=== PATIENT | female | born 1995 | race Caucasian/White ===

== ENCOUNTER 2016-07-24 09:14 | Emergency (ER) | payer OTHER ==
[~2016-07-24] VITALS: Ht 165.1 cm; Wt 110.0 kg
[2016-07-24 09:19] VITALS: Ht 165.1 cm; Wt 110.0 kg
[2016-07-24] MEDS ORDERED: ONDANSETRON (ODT) 4 MG TAB ODT STA (09:43)
[2016-07-24] MEDS ORDERED: ONDA4TAB14 PO (10:28)
[2016-07-24] MEDS ORDERED: ACET500C5 PO (10:28)
--- NOTE | 2016-07-24 10:35 | ERD ---
ER Documentation Chief Complaint Date/Time DATE: 07/24/16 TIME: 10:29 Chief Complaint DIARRHEA, VOMITING AND ABDOMINAL PAIN X 5 DAYS HPI 21-year-old female with no significant past medical history presents the ED complaining of having nausea, 3 episodes of nonbilious nonbloody vomiting, 3 episodes of nonbloody diarrhea and generalized abdominal pain that started 5 days ago. States that she was eating "bad chicken" at home, and reports that her sister also has similar symptoms after eating the same meal. States that she took 1 dose of her sister's antibiotic, unsure of the name, and did not feel any relief of her symptoms. Denies any fever, chills, chest pain, shortness of breath, melena, bloody stools, rectal pain, vaginal discharge, vaginal bleeding, dysuria, flank pain. States that her last menses was on July 11, 2016. States that she is a social drinker. Denies any smoking, drug use ROS All systems reviewed and are negative except as per history of present illness. Medications Home Meds Active Scripts Ondansetron (Ondansetron Odt) 4 Mg Tab.rapdis, 4 MG PO Q6H Y for NAUSEA AND/OR VOMITING, #10 TAB Prov:JAILENE LONGORIA PA-C 07/24/16 Acetaminophen* (Tylophen*) 500 Mg Capsule, 1 CAP PO Q6H Y for PAIN AND OR ELEVATED TEMP, #20 CAP Prov:JAILENE LONGORIA PA-C 07/24/16 PMhx/Soc History of Surgery: No Anesthesia Reaction: No Hx Neurological Disorder: No Hx Respiratory Disorders: No Hx Cardiac Disorders: No Hx Psychiatric Problems: No Hx Miscellaneous Medical Probl: No Hx Alcohol Use: Yes (socially) Hx Substance Use: No Hx Tobacco Use: No Smoking Status: Never smoker Physical Exam Vitals Vital Signs Date Time Temp Pulse Resp B/P Pulse Ox O2 Delivery O2 Flow Rate FiO2 07/24/16 09:19 97.6 81 17 137/88 98 Physical Exam Const: [id number], well-nourished. In no acute distress. Head: Atraumatic, normocephalic Eyes: Normal Conjunctiva without injection. No purulent discharge. ENT: Normal external ear, nose. Moist oropharynx without tonsillar exudates. Non -erythematous pharynx. Uvula midline. No drooling. No trismus. Neck: No cervical midline tenderness. Full range of motion. No meningismus. No cervical lymphadenopathy. No JVD. Resp: Clear to auscultation bilaterally. No wheezing, rhonchi, rales, or crackles. No accessory muscle use. No retractions. Cardio: Regular rate and rhythm. No murmurs, rubs or gallops. Abd: Soft, nontender to palpation, non distended. Normal bowel sounds. No palpable masses. No rebound tenderness. No guarding. Negative McBurney's point. Negative psoas sign. Negative obturator sign. Skin: No petechiae or rashes Back: No midline tenderness. No CVA tenderness. Ext: No cyanosis, or edema. Neur: Awake and alert. Normal gait. Normal coordination. Psych: Normal Mood and Affect Results 24 hrs Current Medications Medications (Trade) Dose Ordered Sig/Kenji Route PRN Reason Start Time Stop Time Status Last Admin Dose Admin Ondansetron HCl (Zofran Odt) 4 mg ONCE STAT ODT 07/24/16 09:43 07/24/16 09:45 DC 07/24/16 09:46 Procedures/MDM This is a 21-year-old female with no significant past medical history presents the ED complaining of generalized abdominal pain, nausea, vomiting, diarrhea after eating "bad chicken". Patient is afebrile and nontoxic-appearing. Patient has normal vital signs. Patient was given Zofran here in the ED with improvement of her symptoms. Patient tolerated oral intake and had a successful p.o. challenge. Patient verbalized that she feels better. Patient symptoms are likely due to viral etiology since her sister also has similar symptoms. A differential diagnosis considered includes but is not limited to gastritis, GERD, peptic ulcer disease, cholecystitis, choledocholithiasis, cholangitis, pancreatitis, appendicitis, bowel obstruction, ileus, volvulus, nephrolithiasis, pyelonephritis, hepatitis, perforated viscus, diverticulitis, abdominal hernia, acute abdomen, mesenteric ischemia or other emergent conditions. There is low suspicion for any acute abdomen, bacterial diarrhea, appendicitis, cholecystitis, bowel obstruction, diverticulitis, or other emergent conditions. Discharge medications: Zofran, Tylenol Follow up with primary care physician in 1-2 days. Increase in fluid intake recommended. Instructed patient to return to the ED sooner for any worsening symptoms. Patient's questions were answered. Patient understood and agreed with discharge plan. Patient discharged stable. Departure Diagnosis: Primary Impression: Vomiting and diarrhea Condition: Stable Patient Instructions: Gastroenteritis, Viral (6Y-Adult), Vomiting And Diarrhea , Nonspecific (Adult) Referrals: COMMUNITY CLINICS YOU HAVE RECEIVED A MEDICAL SCREENING EXAM AND THE RESULTS INDICATE THAT YOU DO NOT HAVE A CONDITION THAT REQUIRES URGENT TREATMENT IN THE EMERGENCY DEPARTMENT. FURTHER EVALUATION AND TREATMENT OF YOUR CONDITION CAN WAIT UNTIL YOU ARE SEEN IN YOUR DOCTORS OFFICE WITHIN THE NEXT 1-2 DAYS. IT IS YOUR RESPONSIBILITY TO MAKE AN APPOINTMENT FOR FOLOW-UP CARE. IF YOU HAVE A PRIMARY DOCTOR --you should call your primary doctor and schedule an appointment IF YOU DO NOT HAVE A PRIMARY DOCTOR YOU CAN CALL OUR PHYSICIAN REFERRAL HOTLINE AT IF YOU CAN NOT AFFORD TO SEE A PHYSICIAN YOU CAN CHOSE FROM THE FOLLOWING [facility] [address] [facility]. [facility] [address] [facility] [facility] [address] [facility] [address] [facility] [address] [facility]. [facility] [address] [facility]. [facility] YOU HAVE RECEIVED A MEDICAL SCREENING EXAM AND THE RESULTS INDICATE THAT YOU DO NOT HAVE A CONDITION THAT REQUIRES URGENT TREATMENT IN THE EMERGENCY DEPARTMENT. FURTHER EVALUATION AND TREATMENT OF YOUR CONDITION CAN WAIT UNTIL YOU ARE SEEN IN YOUR DOCTORS OFFICE WITHIN THE NEXT 1-2 DAYS. IT IS YOUR RESPONSIBILITY TO MAKE AN APPOINTMENT FOR FOLOW-UP CARE. IF YOU HAVE A PRIMARY DOCTOR --you should call your primary doctor and schedule and appointment IF YOU DO NOT HAVE A PRIMARY DOCTOR YOU CAN CALL OUR PHYSICIAN REFERRAL HOTLINE AT . IF YOU CAN NOT AFFORD TO SEE A PHYSICIAN YOU CAN CHOSE FROM THE FOLLOWING [facility] INSTITUTIONS: [facility] [address] [place] [address] [facility] [address] [place] [address] [facility] [address] [place] [address] [facility] Additional Instructions: FOLLOW UP WITH YOUR PRIMARY CARE PHYSICIAN TOMORROW. Return to this facility if you are not improving as expected. JAILENE LONGORIA PA-C Jul 24, 2016 10:35
== END 2016-07-24 10:44 | disposition home or self-care (01) ==
LOC: FTE 09:14
DX: R11.10 Vomiting, unspecified (principal)
CPT/HCPCS: Z7502; Z7610; 99283